=== PATIENT | female | born 1945 | race Hispanic/Latino ===

== ENCOUNTER 2021-11-25 14:09 | Inpatient (IN) | payer MEDICARE ==
[~2021-11-25] VITALS: Ht 154.9 cm; Wt 97.5 kg
[2021-11-25] VITALS (7 sets, daily range): BP systolic 146–155; BP diastolic 63–92
[2021-11-25 15:21] LABS: BASOPHILS # (AUTO) 0.1 (0.0-0.1); BASOPHILS % 0.4 % (0.0-1.0); EOSINOPHILS # (AUTO) 0.3 (0.0-0.4); EOSINOPHILS % 2.1 % (0.0-6.0); HEMATOCRIT 44.8 % (34.2-44.1); HEMOGLOBIN 13.6 g/dL (12.0-16.0); LYMPHOCYTES # (AUTO) 1.7 (1.0-3.2); LYMPHOCYTES % 12.2 % (18.0-39.1); MEAN CORPUSCULAR HEMOGLOBIN 30.6 pg (28-32); MEAN CORPUSCULAR HGB CONC 30.4 g/dL (31-35); MEAN CORPUSCULAR VOLUME 100.9 fL (81-99); MONOCYTES # (AUTO) 1.1 (0.2-0.8); MONOCYTES % 7.9 % (4.4-11.3); NEUTROPHILS # (AUTO) 10.4 (2.1-6.9); PLATELET COUNT 254 x10e3/uL (140-360); RED BLOOD COUNT 4.44 x10e6/uL (3.6-5.1)
[2021-11-25 15:33] LABS: INR 0.86; PROTHROMBIN TIME 12.5 seconds (11.9-14.5)
[2021-11-25 15:43] LABS: ALBUMIN 3.4 g/dL (3.5-5.0); ALBUMIN/GLOBULIN RATIO 0.7 (0.8-2.0); ANION GAP 15.7 mmol/L (8-16); CALCIUM 9.2 mg/dL (8.4-10.2); CREATININE, SERUM 0.92 mg/dL (0.57-1.11); MAGNESIUM 2.1 MG/DL (1.3-2.1); POTASSIUM 3.7 mmol/L (3.5-5.1)
[2021-11-25 15:50] LABS: CREATINE KINASE MB 1.4 ng/mL (0-5.0)
[2021-11-25 16:00] LABS: CLARITY,URINE CLEAR (CLEAR); COLOR,URINE YELLOW (YELLOW); KETONES,URINE NEGATIVE (NEGATIVE); LEUKOCYTE ESTERASE ,URINE NEGATIVE (NEGATIVE); NITRITE,URINE POSITIVE (NEGATIVE); PROTEIN,URINE DIPSTICK 2+ (NEGATIVE)
[2021-11-25] MEDS ORDERED: FUROSEMIDE INJ 10 MG/ML 4 ML VIAL IV ONE (16:00)
[2021-11-25 16:01] LABS: URINE UROBILINOGEN 0.2 mg/dL (0.2 - 1)
[2021-11-25 16:14] LABS: RBC,URINE 0-5 /HPF (0-5); WBC,URINE (MAN) 0-5 /HPF (0-5)
[2021-11-25 16:15] LABS: BACTERIA,URINE MANY /HPF; EPITHELIAL CELLS,URINE FEW /LPF
[2021-11-25] MEDS ORDERED: Morphine 2mg Syringe 2 MG/ML SYR IV PRN (16:15)
[2021-11-25] MEDS ORDERED: DEXTROSE 50% SYRINGE 50 ML IV PRN (16:15)
[2021-11-25] MEDS ORDERED: NITROGLYCERIN 0.4 MG SUBL SL PRN (16:15)
[2021-11-25] MEDS ORDERED: ONDANSETRON HCL INJ 2MG/ML 2ML 2 MG/ML VIAL IV PRN (16:15)
[2021-11-25] MEDS: INSULIN LISPRO 100 UNIT/1 ML 3ML VIAL SQ SCH ×2 (16:30→21:15)
[2021-11-25] MEDS ORDERED: IOPAMIDOL 370 MG/ML 100 ML INFUS..BTL INJ ONE (16:58)
[2021-11-25] MEDS: FUROSEMIDE INJ 10 MG/ML 4 ML VIAL IV SCH (21:15)
[2021-11-26] VITALS (18 sets, daily range): BP systolic 101–169; BP diastolic 71–118
[2021-11-26] MEDS ORDERED: LOSARTAN POTAS100 MG PO (00:08)
[2021-11-26] MEDS ORDERED: BACLOFEN10 MG PO (00:08)
[2021-11-26] MEDS ORDERED: ATORVASTATIN CA10 MG PO (00:08)
[2021-11-26] MEDS ORDERED: METFORMIN HCL500 MG PO (00:08)
[2021-11-26] MEDS ORDERED: YUPELRI175 MCG/3 NEB (00:08)
[2021-11-26] MEDS ORDERED: MONTELUKAST SOD10 MG PO (00:08)
[2021-11-26] MEDS ORDERED: K-DUR10 MEQ PO (00:08)
[2021-11-26] MEDS ORDERED: COREG6.25 MG PO (00:08)
[2021-11-26] MEDS ORDERED: CLONIDINE HCL0.2 MG PO (00:08)
[2021-11-26] MEDS ORDERED: FUROSEMIDE40 MG PO (00:08)
[2021-11-26] MEDS ORDERED: PROAIR HFA INH8.5 GM INH (00:08)
[2021-11-26] MEDS ORDERED: FOSAMAX70 MG PEG (00:08)
[2021-11-26] MEDS ORDERED: SERTRALINE HCL100 MG PO (00:08)
[2021-11-26 05:47] LABS: BASOPHILS # (AUTO) 0.1 (0.0-0.1); BASOPHILS % 0.6 % (0.0-1.0); EOSINOPHILS # (AUTO) 0.3 (0.0-0.4); EOSINOPHILS % 2.2 % (0.0-6.0); HEMATOCRIT 38.7 % (34.2-44.1); HEMOGLOBIN 12.1 g/dL (12.0-16.0); LYMPHOCYTES # (AUTO) 1.6 (1.0-3.2); MEAN CORPUSCULAR HEMOGLOBIN 30.3 pg (28-32); MEAN CORPUSCULAR HGB CONC 31.3 g/dL (31-35); MONOCYTES # (AUTO) 1.1 (0.2-0.8); MONOCYTES % 10.1 % (4.4-11.3); NEUTROPHILS # (AUTO) 8.2 (2.1-6.9); NEUTROPHILS % 72.6 % (38.7-80.0); PLATELET COUNT 235 x10e3/uL (140-360); RED BLOOD COUNT 3.99 x10e6/uL (3.6-5.1); RED CELL DISTRIBUTION WIDTH 14.1 % (11.7-14.4)
[2021-11-26 06:12] LABS: ALBUMIN 3.1 g/dL (3.5-5.0); ALBUMIN/GLOBULIN RATIO 0.8 (0.8-2.0); ANION GAP 15.5 mmol/L (8-16); CALCIUM 8.7 mg/dL (8.4-10.2); CHOL/HDL RATIO 3.6 (3.0-3.6); CREATININE, SERUM 0.81 mg/dL (0.57-1.11); POTASSIUM 3.5 mmol/L (3.5-5.1)
[2021-11-26 06:45] LABS: CREATINE KINASE MB 1.3 ng/mL (0-5.0)
[2021-11-26] MEDS: INSULIN LISPRO 100 UNIT/1 ML 3ML VIAL SQ SCH ×4 (07:10→21:31)
[2021-11-26] MEDS ORDERED: ALBUTEROL SULFATE HFA 8GM INHALATION AEROSOL INH PRN (08:15)
[2021-11-26] MEDS: CARVEDILOL 3.125 MG TAB PO SCH ×2 (08:42→16:30)
[2021-11-26] MEDS: FUROSEMIDE INJ 10 MG/ML 4 ML VIAL IV SCH ×2 (08:42→21:30)
[2021-11-26] MEDS: LOSARTAN POTASSIUM 100 MG TAB PO SCH (08:43)
[2021-11-26] MEDS: MONTELUKAST SODIUM 10 MG TAB PO SCH (08:44)
[2021-11-26] MEDS ORDERED: POTASSIUM CHLORIDE 20 MEQ TAB CR PO ONE (09:00)
[2021-11-26 17:18] LABS: CREATINE KINASE MB 1.1 ng/mL (0-5.0)
[2021-11-26] MEDS: ATORVASTATIN 10 MG TAB PO SCH (21:30)
[2021-11-27] VITALS (7 sets, daily range): BP systolic 121–147; BP diastolic 75–92
[2021-11-27 05:33] LABS: BASOPHILS # (AUTO) 0.1 (0.0-0.1); BASOPHILS % 0.6 % (0.0-1.0); EOSINOPHILS # (AUTO) 0.1 (0.0-0.4); EOSINOPHILS % 1.1 % (0.0-6.0); HEMATOCRIT 42.4 % (34.2-44.1); HEMOGLOBIN 12.9 g/dL (12.0-16.0); LYMPHOCYTES # (AUTO) 1.7 (1.0-3.2); MEAN CORPUSCULAR HEMOGLOBIN 30.4 pg (28-32); MEAN CORPUSCULAR HGB CONC 30.4 g/dL (31-35); MONOCYTES # (AUTO) 0.9 (0.2-0.8); NEUTROPHILS # (AUTO) 8.7 (2.1-6.9); PLATELET COUNT 224 x10e3/uL (140-360); RED BLOOD COUNT 4.24 x10e6/uL (3.6-5.1); RED CELL DISTRIBUTION WIDTH 14.1 % (11.7-14.4)
[2021-11-27 05:53] LABS: ALBUMIN 3.1 g/dL (3.5-5.0); ALBUMIN/GLOBULIN RATIO 0.7 (0.8-2.0); ANION GAP 17.7 mmol/L (8-16); CALCIUM 8.9 mg/dL (8.4-10.2); CREATININE, SERUM 0.88 mg/dL (0.57-1.11); POTASSIUM 3.7 mmol/L (3.5-5.1)
[2021-11-27] MEDS: INSULIN LISPRO 100 UNIT/1 ML 3ML VIAL SQ SCH ×4 (07:30→21:16)
[2021-11-27] MEDS: MONTELUKAST SODIUM 10 MG TAB PO SCH (09:00)
[2021-11-27] MEDS: CARVEDILOL 3.125 MG TAB PO SCH ×2 (09:39→17:10)
[2021-11-27] MEDS: LOSARTAN POTASSIUM 100 MG TAB PO SCH (09:39)
[2021-11-27] MEDS: FUROSEMIDE INJ 10 MG/ML 4 ML VIAL IV SCH ×2 (09:39→20:23)
[2021-11-27] MEDS ORDERED: ONDANSETRON HCL 4 MG ORAL DISINTEGRATING TAB PO PRN (09:45)
[2021-11-27] MEDS: ATORVASTATIN 10 MG TAB PO SCH (20:24)
[2021-11-28] VITALS (8 sets, daily range): BP systolic 105–133; BP diastolic 63–84
[2021-11-28] MEDS: INSULIN LISPRO 100 UNIT/1 ML 3ML VIAL SQ SCH ×4 (07:30→21:52)
[2021-11-28] MEDS: FUROSEMIDE INJ 10 MG/ML 4 ML VIAL IV SCH ×2 (10:00→21:42)
[2021-11-28] MEDS: MONTELUKAST SODIUM 10 MG TAB PO SCH (10:00)
[2021-11-28] MEDS: CARVEDILOL 3.125 MG TAB PO SCH ×2 (12:00→21:39)
[2021-11-28] MEDS: LOSARTAN POTASSIUM 100 MG TAB PO SCH (12:00)
[2021-11-28] MEDS: ATORVASTATIN 10 MG TAB PO SCH (21:40)
[2021-11-29] VITALS (7 sets, daily range): BP systolic 98–141; BP diastolic 65–87
[2021-11-29 05:04] LABS: BASOPHILS # (AUTO) 0.1 (0.0-0.1); BASOPHILS % 0.6 % (0.0-1.0); EOSINOPHILS # (AUTO) 0.3 (0.0-0.4); EOSINOPHILS % 2.2 % (0.0-6.0); HEMATOCRIT 40.1 % (34.2-44.1); HEMOGLOBIN 12.3 g/dL (12.0-16.0); LYMPHOCYTES # (AUTO) 2.2 (1.0-3.2); LYMPHOCYTES % 15.8 % (18.0-39.1); MEAN CORPUSCULAR HEMOGLOBIN 30.4 pg (28-32); MEAN CORPUSCULAR HGB CONC 30.7 g/dL (31-35); MONOCYTES # (AUTO) 1.4 (0.2-0.8); MONOCYTES % 10.3 % (4.4-11.3); NEUTROPHILS # (AUTO) 9.7 (2.1-6.9); NEUTROPHILS % 70.6 % (38.7-80.0); PLATELET COUNT 245 x10e3/uL (140-360); RED BLOOD COUNT 4.05 x10e6/uL (3.6-5.1); RED CELL DISTRIBUTION WIDTH 13.7 % (11.7-14.4)
[2021-11-29 05:34] LABS: ANION GAP 16.4 mmol/L (8-16); CALCIUM 9.2 mg/dL (8.4-10.2); CREATININE, SERUM 0.95 mg/dL (0.57-1.11); MAGNESIUM 1.9 MG/DL (1.3-2.1); POTASSIUM 3.4 mmol/L (3.5-5.1)
[2021-11-29] MEDS: INSULIN LISPRO 100 UNIT/1 ML 3ML VIAL SQ SCH ×4 (07:30→21:00)
[2021-11-29] MEDS: MONTELUKAST SODIUM 10 MG TAB PO SCH (08:42)
[2021-11-29] MEDS: LOSARTAN POTASSIUM 100 MG TAB PO SCH (08:42)
[2021-11-29] MEDS: CARVEDILOL 3.125 MG TAB PO SCH ×2 (08:42→21:00)
[2021-11-29] MEDS: FUROSEMIDE INJ 10 MG/ML 4 ML VIAL IV SCH ×2 (08:44→21:00)
[2021-11-29] MEDS: ACETAMINOPHEN 325 MG TAB PO PRN (08:44)
[2021-11-29] MEDS: ATORVASTATIN 10 MG TAB PO SCH (21:30)
[2021-11-30] VITALS: BP 98/63
[2021-11-30 04:00] VITALS: BP 110/61
[2021-11-30 05:39] LABS: BASOPHILS # (AUTO) 0.1 (0.0-0.1); BASOPHILS % 0.6 % (0.0-1.0); EOSINOPHILS # (AUTO) 0.4 (0.0-0.4); EOSINOPHILS % 4.1 % (0.0-6.0); HEMATOCRIT 41.2 % (34.2-44.1); HEMOGLOBIN 12.7 g/dL (12.0-16.0); LYMPHOCYTES # (AUTO) 1.9 (1.0-3.2); LYMPHOCYTES % 20.1 % (18.0-39.1); MEAN CORPUSCULAR HEMOGLOBIN 30.3 pg (28-32); MEAN CORPUSCULAR HGB CONC 30.8 g/dL (31-35); MEAN CORPUSCULAR VOLUME 98.3 fL (81-99); MONOCYTES # (AUTO) 1.1 (0.2-0.8); MONOCYTES % 11.8 % (4.4-11.3); NEUTROPHILS % 63.1 % (38.7-80.0); PLATELET COUNT 230 x10e3/uL (140-360); RED BLOOD COUNT 4.19 x10e6/uL (3.6-5.1); RED CELL DISTRIBUTION WIDTH 13.8 % (11.7-14.4)
[2021-11-30 06:03] LABS: ANION GAP 15.4 mmol/L (8-16); CREATININE, SERUM 0.88 mg/dL (0.57-1.11); MAGNESIUM 2.1 MG/DL (1.3-2.1); POTASSIUM 3.4 mmol/L (3.5-5.1)
[2021-11-30] MEDS: INSULIN LISPRO 100 UNIT/1 ML 3ML VIAL SQ SCH ×2 (07:30→11:21)
[2021-11-30 07:55] VITALS: BP 123/74
[2021-11-30 08:00] VITALS: BP 123/74
[2021-11-30] MEDS: FUROSEMIDE INJ 10 MG/ML 4 ML VIAL IV SCH (08:47)
[2021-11-30] MEDS: CARVEDILOL 3.125 MG TAB PO SCH (08:48)
[2021-11-30] MEDS: LOSARTAN POTASSIUM 100 MG TAB PO SCH (08:49)
[2021-11-30] MEDS: MONTELUKAST SODIUM 10 MG TAB PO SCH (08:49)
[2021-11-30] MEDS: ACETAMINOPHEN 325 MG TAB PO PRN (08:55)
[2021-11-30 11:23] VITALS: BP 122/86
[2021-11-30] MEDS ORDERED: LASIX40 MG PO (15:21)
[2021-11-30] MEDS ORDERED: NITROSTAT0.4 MG SL (15:21)
[2021-11-30] MEDS ORDERED: POTASSIUM CHLO20 ME1 PO (15:21)
[2021-11-30] MEDS ORDERED: ONDANSETRON ODT4 MG PO (15:21)
[2021-11-30] MEDS ORDERED: POTASSIUM CHLORIDE 20 MEQ TAB CR PO NR (15:50)
[2021-11-30] MEDS ORDERED: CEFUROXIME500 MG PO (16:13)
== END 2021-11-30 16:55 | disposition home or self-care (01) | DRG 291 ==
LOC: ER 14:41 → ERHOLD 16:12 → ICU 19:49 → MED/SURG 11-26 22:54
PROVIDERS: ADMIT Internal Medicine; ATTEND Internal Medicine
DX: I11.0 Hypertensive heart disease with heart failure (principal); I50.43 Acute on chronic combined systolic (congestive) and diastolic (congestive) heart failure; J96.21 Acute and chronic respiratory failure with hypoxia; E87.0 Hyperosmolality and hypernatremia; J84.9 Interstitial pulmonary disease, unspecified; J44.1 Chronic obstructive pulmonary disease with (acute) exacerbation; N39.0 Urinary tract infection, site not specified; J44.9 Chronic obstructive pulmonary disease, unspecified; I27.20 Pulmonary hypertension, unspecified; Z20.822 Contact with and (suspected) exposure to COVID-19; I13.0 Hypertensive heart and chronic kidney disease with heart failure and stage 1 through stage 4 chronic kidney disease, or unspecified chronic kidney disease; E11.22 Type 2 diabetes mellitus with diabetic chronic kidney disease; N18.2 Chronic kidney disease, stage 2 (mild); F32.A Depression, unspecified; E78.5 Hyperlipidemia, unspecified; B96.20 Unspecified Escherichia coli [E. coli] as the cause of diseases classified elsewhere; I27.81 Cor pulmonale (chronic)
CPT/HCPCS: 36415; 71045; 71046; 71260; 80048; 80053; 80061; 81001; 82550; 82553; 82948; 83735; 83880; 84484; 85025; 85610; 85730; 87040; 87086; 87186; 93005; 93306; 94799; 99251; 99285; J1940; J2270; Q9967

== ENCOUNTER 2021-12-16 13:46 | Inpatient (IN) | payer MEDICARE ==
[~2021-12-16] VITALS: Ht 154.9 cm; Wt 97.5 kg
[~2021-12-16 13:46] MED LIST: ATORVASTATIN CA10 MG PO; BACLOFEN10 MG PO; CEFUROXIME500 MG PO; CLONIDINE HCL0.2 MG PO; COREG6.25 MG PO; FOSAMAX70 MG PEG; FUROSEMIDE40 MG PO; K-DUR10 MEQ PO; LASIX40 MG PO; LOSARTAN POTAS100 MG PO; METFORMIN HCL500 MG PO; MONTELUKAST SOD10 MG PO; NITROSTAT0.4 MG SL; ONDANSETRON ODT4 MG PO; POTASSIUM CHLO20 ME1 PO; PROAIR HFA INH8.5 GM INH; SERTRALINE HCL100 MG PO; YUPELRI175 MCG/3 NEB
[2021-12-16] MEDS ORDERED: SODIUM CHLORIDE 0.9% 1000ML 1,000 ML IV STA (14:16)
[2021-12-16 14:42] LABS: BASOPHILS % 0.3 % (0.0-1.0); EOSINOPHILS # (AUTO) 0.2 (0.0-0.4); HEMATOCRIT 39.9 % (34.2-44.1); HEMOGLOBIN 12.3 g/dL (12.0-16.0); LYMPHOCYTES # (AUTO) 1.9 (1.0-3.2); LYMPHOCYTES % 16.6 % (18.0-39.1); MEAN CORPUSCULAR HEMOGLOBIN 30.5 pg (28-32); MEAN CORPUSCULAR HGB CONC 30.8 g/dL (31-35); MONOCYTES % 8.9 % (4.4-11.3); NEUTROPHILS # (AUTO) 8.4 (2.1-6.9); NEUTROPHILS % 71.6 % (38.7-80.0); PLATELET COUNT 208 x10e3/uL (140-360); RED BLOOD COUNT 4.03 x10e6/uL (3.6-5.1); RED CELL DISTRIBUTION WIDTH 14.7 % (11.7-14.4)
[2021-12-16 14:50] LABS: INR 0.87; PROTHROMBIN TIME 12.7 seconds (11.9-14.5)
[2021-12-16 14:51] LABS: PARTIAL THROMBOPLASTIN TIME 26.9 seconds (23.8-35.5)
[2021-12-16 15:02] LABS: ALBUMIN 3.3 g/dL (3.5-5.0); ALBUMIN/GLOBULIN RATIO 0.8 (0.8-2.0); ANION GAP 17.6 mmol/L (8-16); CALCIUM 9.1 mg/dL (8.4-10.2); CLARITY,URINE CLEAR (CLEAR); COLOR,URINE YELLOW (YELLOW); CREATININE, SERUM 1.85 mg/dL (0.57-1.11); LEUKOCYTE ESTERASE ,URINE NEGATIVE (NEGATIVE); NITRITE,URINE NEGATIVE (NEGATIVE); POTASSIUM 3.6 mmol/L (3.5-5.1); PROTEIN,URINE DIPSTICK NEGATIVE (NEGATIVE)
[2021-12-16 15:03] LABS: KETONES,URINE NEGATIVE (NEGATIVE); URINE UROBILINOGEN 0.2 mg/dL (0.2 - 1)
[2021-12-16 15:12] LABS: CREATINE KINASE MB 1.7 ng/mL (0-5.0)
[2021-12-16 15:28] LABS: BACTERIA,URINE MODERATE /HPF; EPITHELIAL CELLS,URINE MODERATE /LPF; RENAL EPITHELIAL CELLS,URINE RARE; WBC,URINE (MAN) 0-5 /HPF (0-5)
[2021-12-16] MEDS: INSULIN LISPRO 100 UNIT/1 ML 3ML VIAL SQ SCH ×2 (16:30→23:10)
[2021-12-16] MEDS ORDERED: ONDANSETRON HCL INJ 2MG/ML 2ML 2 MG/ML VIAL IV PRN (16:30)
[2021-12-16] MEDS ORDERED: DEXTROSE 50% SYRINGE 50 ML IV PRN (16:30)
[2021-12-16 20:00] VITALS: BP 119/61
[2021-12-16 23:39] LABS: CREATINE KINASE MB 1.4 ng/mL (0-5.0)
[2021-12-17] VITALS (8 sets, daily range): BP systolic 119–155; BP diastolic 61–84
[2021-12-17 06:24] LABS: BASOPHILS % 0.4 % (0.0-1.0); EOSINOPHILS # (AUTO) 0.2 (0.0-0.4); EOSINOPHILS % 2.2 % (0.0-6.0); HEMATOCRIT 38.8 % (34.2-44.1); HEMOGLOBIN 11.5 g/dL (12.0-16.0); LYMPHOCYTES # (AUTO) 2.1 (1.0-3.2); LYMPHOCYTES % 20.1 % (18.0-39.1); MEAN CORPUSCULAR HEMOGLOBIN 30.4 pg (28-32); MEAN CORPUSCULAR HGB CONC 29.6 g/dL (31-35); MEAN CORPUSCULAR VOLUME 102.6 fL (81-99); MONOCYTES # (AUTO) 1.1 (0.2-0.8); MONOCYTES % 10.6 % (4.4-11.3); NEUTROPHILS # (AUTO) 6.8 (2.1-6.9); NEUTROPHILS % 66.3 % (38.7-80.0); PLATELET COUNT 172 x10e3/uL (140-360); RED BLOOD COUNT 3.78 x10e6/uL (3.6-5.1); RED CELL DISTRIBUTION WIDTH 14.7 % (11.7-14.4)
[2021-12-17 06:57] LABS: ALBUMIN 2.9 g/dL (3.5-5.0); ALBUMIN/GLOBULIN RATIO 0.8 (0.8-2.0); ANION GAP 13.5 mmol/L (8-16); CALCIUM 8.7 mg/dL (8.4-10.2); CHOL/HDL RATIO 3.2 (3.0-3.6); CREATININE, SERUM 1.04 mg/dL (0.57-1.11); POTASSIUM 3.5 mmol/L (3.5-5.1)
[2021-12-17 07:19] LABS: CREATINE KINASE MB 1.2 ng/mL (0-5.0)
[2021-12-17] MEDS: INSULIN LISPRO 100 UNIT/1 ML 3ML VIAL SQ SCH ×4 (07:30→21:00)
[2021-12-17] MEDS ORDERED: SODIUM CHLORIDE 0.9% 250ML 250 ML ONE (07:31)
[2021-12-17] MEDS: FUROSEMIDE INJ 10 MG/ML 4 ML VIAL IV SCH ×2 (09:09→21:53)
[2021-12-17] MEDS ORDERED: ALBUTEROL SULFATE HFA 8GM INHALATION AEROSOL INH PRN (09:45)
[2021-12-17] MEDS ORDERED: POTASSIUM CHLORIDE 20 MEQ TAB CR PO ONE (10:30)
[2021-12-17] MEDS: CARVEDILOL 3.125 MG TAB PO SCH (15:54)
[2021-12-18] VITALS: BP 119/87
[2021-12-18 02:17] VITALS: BP 119/87
[2021-12-18 04:00] VITALS: BP 139/90
[2021-12-18] MEDS: INSULIN LISPRO 100 UNIT/1 ML 3ML VIAL SQ SCH ×2 (07:30→11:30)
[2021-12-18 08:20] VITALS: BP 166/92
[2021-12-18 08:35] VITALS: BP 163/90
[2021-12-18] MEDS: FUROSEMIDE INJ 10 MG/ML 4 ML VIAL IV SCH (08:40)
[2021-12-18] MEDS: CARVEDILOL 3.125 MG TAB PO SCH (08:41)
[2021-12-18] MEDS ORDERED: AZITHROMYCIN 250 MG TAB PO SCH (09:00)
[2021-12-18] MEDS ORDERED: LOSARTAN POTASSIUM 100 MG TAB PO SCH (09:00)
[2021-12-18] MEDS ORDERED: MONTELUKAST SODIUM 10 MG TAB PO SCH (09:00)
[2021-12-18] MEDS ORDERED: ZITHROMAX500 MG PO (09:54)
[2021-12-18] MEDS ORDERED: CEPHALEXIN500 MG PO (09:54)
[2021-12-18 11:12] LABS: ANION GAP 11.9 mmol/L (8-16); CALCIUM 8.5 mg/dL (8.4-10.2); CREATININE, SERUM 0.84 mg/dL (0.57-1.11); POTASSIUM 3.9 mmol/L (3.5-5.1)
[2021-12-18] MEDS ORDERED: ONDANSETRON HCL 4 MG ORAL DISINTEGRATING TAB PO PRN (11:15)
[2021-12-18 11:42] VITALS: BP 137/70
[2021-12-18] MEDS ORDERED: FUROSEMIDE 20 MG TAB PO SCH (17:00)
== END 2021-12-18 14:58 | disposition home health service (06) | DRG 291 ==
LOC: ER 13:58 → ERHOLD 16:20 → MED/SURG3 18:49
PROVIDERS: ADMIT Internal Medicine; ATTEND Internal Medicine
DX: I13.0 Hypertensive heart and chronic kidney disease with heart failure and stage 1 through stage 4 chronic kidney disease, or unspecified chronic kidney disease (principal); I50.43 Acute on chronic combined systolic (congestive) and diastolic (congestive) heart failure; J96.01 Acute respiratory failure with hypoxia; N17.9 Acute kidney failure, unspecified; Z68.41 Body mass index [BMI] 40.0-44.9, adult; E66.9 Obesity, unspecified; Z99.81 Dependence on supplemental oxygen; E11.22 Type 2 diabetes mellitus with diabetic chronic kidney disease; N18.2 Chronic kidney disease, stage 2 (mild); J44.9 Chronic obstructive pulmonary disease, unspecified; I27.20 Pulmonary hypertension, unspecified; Z79.84 Long term (current) use of oral hypoglycemic drugs
CPT/HCPCS: 0223U; 36415; 71045; 74018; 80048; 80053; 80061; 81001; 82550; 82553; 82948; 83605; 83690; 83880; 84484; 85025; 85610; 85730; 93005; 94799; 99284; J0456; J0696; J1940; J7030; J7050

== ENCOUNTER 2022-03-08 00:51 | Emergency (ER) | payer MEDICARE ==
[~2022-03-08] VITALS: Ht 157.5 cm; Wt 83.9 kg
[~2022-03-08 00:51] MED LIST changes: +CEPHALEXIN500 MG PO; +ZITHROMAX500 MG PO
[2022-03-08] MEDS ORDERED: ALBUTEROL SULF 0.083% NEB SOLN 3 ML NEB NEB STA (01:03)
[2022-03-08 01:14] LABS: BASOPHILS # (AUTO) 0.1 (0.0-0.1); BASOPHILS % 0.4 % (0.0-1.0); EOSINOPHILS # (AUTO) 0.2 (0.0-0.4); EOSINOPHILS % 1.9 % (0.0-6.0); HEMATOCRIT 46.1 % (34.2-44.1); HEMOGLOBIN 14.4 g/dL (12.0-16.0); LYMPHOCYTES # (AUTO) 2.3 (1.0-3.2); LYMPHOCYTES % 20.5 % (18.0-39.1); MEAN CORPUSCULAR HEMOGLOBIN 31.2 pg (28-32); MEAN CORPUSCULAR HGB CONC 31.2 g/dL (31-35); MEAN CORPUSCULAR VOLUME 99.8 fL (81-99); MONOCYTES # (AUTO) 1.2 (0.2-0.8); MONOCYTES % 10.8 % (4.4-11.3); NEUTROPHILS # (AUTO) 7.4 (2.1-6.9); NEUTROPHILS % 65.9 % (38.7-80.0); PLATELET COUNT 225 x10e3/uL (140-360); RED BLOOD COUNT 4.62 x10e6/uL (3.6-5.1); RED CELL DISTRIBUTION WIDTH 14.2 % (11.7-14.4)
[2022-03-08] MEDS ORDERED: METHYLPREDNISOLONE SOD SUCC 125 MG/2ML VIAL IV ONE (01:15)
[2022-03-08] MEDS ORDERED: IPRATROPIUM BROMIDE 0.02% 2.5 ML NEB NEB ONE (01:15)
[2022-03-08 01:33] LABS: ALBUMIN 3.5 g/dL (3.5-5.0); ALBUMIN/GLOBULIN RATIO 0.9 (0.8-2.0); ANION GAP 19.8 mmol/L (8-16); CALCIUM 9.8 mg/dL (8.4-10.2); CREATININE, SERUM 1.99 mg/dL (0.57-1.11); POTASSIUM 3.8 mmol/L (3.5-5.1)
[2022-03-08 01:39] LABS: CREATINE KINASE MB 9.6 ng/mL (0-5.0)
[2022-03-08 01:42] LABS: ABG PCO2 53 mmHg (35-45); ABG PH 7.41 (7.35-7.45); ABG PO2 194 mmHg (80-105)
[2022-03-08 01:43] LABS: ABG HCO3 33 mmol/L (22-26); ABG TCO2 35
[2022-03-08] MEDS ORDERED: ASPIRIN 81 MG CHEW TAB PO ONE (02:15)
[2022-03-08] MEDS ORDERED: HEPARIN SOD (PORCINE) 5,000 UNIT/ML VIAL IV ONE (02:15)
[2022-03-08] MEDS ORDERED: HEPARIN 25,000 UNIT 1,000 UNIT in DEXTROSE 5% 250ML 250 ML IV SCH (02:15)
[2022-03-08 02:28] LABS: INR 1.07; PROTHROMBIN TIME 14.9 seconds (11.9-14.5)
[2022-03-08 02:29] LABS: PARTIAL THROMBOPLASTIN TIME 29.8 seconds (23.8-35.5)
[2022-03-08] MEDS ORDERED: HEPARIN 25,000 UNIT DRIP IV ONE (02:52)
[2022-03-08] MEDS ORDERED: HEPARIN IV SCH (03:00)
[2022-03-08] MEDS ORDERED: DEXTROSE 5% IV SCH (03:00)
[2022-03-08 03:13] VITALS: BP 130/72
== END 2022-03-08 03:40 | disposition other institution (70) ==
LOC: ER 00:59
DX: R06.02 Shortness of breath (principal); I21.4 Non-ST elevation (NSTEMI) myocardial infarction; R06.03 Acute respiratory distress; R74.01 Elevation of levels of liver transaminase levels; I50.9 Heart failure, unspecified; J44.9 Chronic obstructive pulmonary disease, unspecified; N28.9 Disorder of kidney and ureter, unspecified; Z20.822 Contact with and (suspected) exposure to COVID-19; R94.31 Abnormal electrocardiogram [ECG] [EKG]
CPT/HCPCS: 36415; 36600; 71045; 80053; 82550; 82553; 82805; 83605; 83690; 83880; 84484; 85025; 85610; 85730; 87040; 87400; 93005; 94640; 94799; 99284; J1644; J2930; U0002